=== PATIENT | male | born 1965 | race Two or more races ===

== ENCOUNTER 2023-12-02 09:59 | Outpatient (CLI) | payer OTHER | END 2023-12-02 10:00 | disposition home or self-care (01) | LOC: NUCLEAR 09:59 | PROVIDERS: ATTEND Internal Medicine | DX: I10 Essential (primary) hypertension (principal); R07.89 Other chest pain ==

== ENCOUNTER 2023-12-16 07:22 | Outpatient (CLI) | payer OTHER | END 2023-12-16 07:24 | disposition home or self-care (01) | LOC: NUCLEAR 07:22 | PROVIDERS: ATTEND Internal Medicine | DX: I20.9 Angina pectoris, unspecified (principal) ==